=== PATIENT | female | born 1980 | race Caucasian/White ===

== ENCOUNTER 2016-09-08 07:02 | Day surgery (SDC) | payer BC ==
--- NOTE | 2016-09-02 10:36 | HP ---
DATE OF ADMISSION: 09/02/2016 HISTORY OF PRESENT ILLNESS: This is the first orthopedic outpatient admission for surgery for this 36-year- old female, who was evaluated through the orthopedic office and was found to have a displaced avulsion fracture of the distal phalanx of right small finger. The patient suffered an injury on 08/07/2016, was placed on a splint. The patient was currently evaluated through orthopedic office with a displaced fracture fragment and abnormality. The patient is now being scheduled for an open reduction and internal fixation of the fracture with pinning. Procedure has been outlined to her along the risks and complications involved with it. The patient has a history of an upper respiratory infection, which is being treated. She notes no fever, chills, or nighttime sweats at this time. ALLERGIES: No known drug allergies. PAST MEDICAL HISTORY: Has been a healthy 36-year-old female with the upper respiratory infection being treated. MEDICAL PROBLEMS: The patient denies any history of high blood pressure, diabetes, currently on medications of an inhaler and antibiotics. PAST SURGICAL HISTORY: Positive. She notes no anesthesia complications or problems. She has a negative bleeding history, negative blood clot history. SOCIAL HISTORY: She is a nonsmoker and alcohol is very rare. PHYSICAL EXAMINATION: GENERAL: Today, reveals a well-developed, well-nourished, 36-year-old female, in [id number] distress. HEAD, EYES, EARS, NOSE, AND THROAT: Normocephalic. NECK: Supple. CHEST: Clear. COR: Regular rate and rhythm. ABDOMEN: Soft. : Intact. EXTREMITIES: Examination of the right hand, small finger reveals positive swelling over the distal interphalangeal joint region. Positive mallet deformity noted. RADIOGRAPHIC STUDIES: The x-rays reveal a displaced fracture fragment, distal phalanx, right small finger avulsion type. PLAN: For the patient to undergo surgical open reduction and internal fixation with K- wire pinning. Procedure as outlined to the patient. She understands the risks and complications involved with it and has consented to the surgery. CANDY /[id number]
[~2016-09-08 07:02] MED LIST: Lactated Ringers 1,000 ML IV SCH; Lidocaine 1%/Sod Bicarbonate in NS 8.4% 1 ML Syringe IV PRN; Sodium Chloride 0.9% 10 ML Syringe FLUSH PRN
[2016-09-08] MEDS ORDERED: Lidocaine 1% 2 ML SDV ONE (07:08)
[2016-09-08] MEDS ORDERED: Ondansetron 4 MG/2 ML SDV ONE (07:08)
[2016-09-08] MEDS ORDERED: Propofol 200 MG/20 ML SDV ONE (07:08)
[2016-09-08] MEDS ORDERED: ceFAZolin 1 GM Vial ONE (07:09)
[2016-09-08] MEDS ORDERED: Midazolam 1 MG/ML 2 ML SDV ONE (07:09)
[2016-09-08] MEDS ORDERED: fentaNYL 250 MCG/5 ML SDV ONE (07:09)
--- NOTE | 2016-09-08 07:26 | PCM.PREANE ---
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 Respiratory: Reports: no symptoms Cardiovascular: Reports: no symptoms GI: Reports: no symptoms Other: Reports: none - PHYSICAL ASSESSMENT HR: 56 O2 Sat by Pulse Oximetry: 99 RR: 16 BP: 116/78 Temp: 97.4 F Height: 5 ft 5 in Weight: 66 kg NPO Status Date: 09/07/16 NPO Status Time: 21:00 ASA Class: 1 Mental Status: alert & oriented x3 Airway Class: Mallampati = 1 Dentition: Reports: normal dentition, broken tooth/teeth (front one) Thyro-Mental Finger Breadths: 3 Mouth Opening Finger Breadths: 3 ROM/Head Extension: full Respiratory Status: lungs clear to auscultation bilaterally Cardiovascular Status: regular rate & rhythm, normal S1, S2, no murmur, blood pressure WNL - ALLERGIES Allergies/Adverse Reactions: Allergies Allergy/AdvReac Type Severity Reaction Status Date / Time No Known Allergies Allergy Verified 09/07/16 13:01 - BLOOD Blood Available: No - ANESTHESIA PLAN Preop Beta Norbert: No Anesthesia Type Planned: general anesthesia - ACKNOWLEDGEMENTS Pt an appropriate candidate for the planned anesthesia: Yes Alternatives and risks of anesthesia discussed w pt/guardian: Yes Pt/Guardian understands and agree with anesthesia plan: Yes PreAnesthesia Questionnaire - Past Health History Medical/Surgical History: Denies Medical/Surgical History HEENT History: Reports: None Cardiovascular History: Reports: None Respiratory History: Reports: None Gastrointestinal History: Reports: None Genitourinary History: Reports: None 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 Musculoskeletal History: Reports: Fracture Neurological History: Reports: None Psychiatric History: Reports: None Endocrine/Metabolic History: Reports: None Hematologic History: Reports: None Immunologic History: Reports: None Oncologic (Cancer) History: Reports: None Dermatologic History: Reports: None - Infectious Disease History Infectious Disease History: Reports: None - Past Surgical History Head Surgeries/Procedures: Reports: None HEENT Surgical History: Reports: None Cardiovascular Surgical History: Reports: None Respiratory Surgical History: Reports: None GI Surgical History: Reports: None Female Surgical History: Reports: None, Tubal ligation Neurological Surgical History: Reports: None Musculoskeletal Surgical History: Reports: Other (see below) (acl knee) Oncologic Surgical History: Reports: None - SUBSTANCE USE Smoking Status *Q: Former Smoker (long time ago) Tobacco Use Within Last Twelve Months: No Second Hand Smoke Exposure: No Days Per Week of Alcohol Use: 2 Number of Drinks Per Day: 1 Total Drinks Per Week: 2 Recreational Drug Use History: No - HOME MEDS Home Medications: Home Meds . [No Known Home Meds] 09/07/16 [History] - CURRENT (IN HOUSE) MEDS Current Meds: Current Medications Lactated Ringer's (Ringers, Lactated) 1,000 mls @ 125 mls/hr IV ASDIRECTED ALIREZA Stop: 09/08/16 23:00 Lidocaine/Sodium Bicarbonate (Buffered Lidocaine 1% In Ns 8.4%) 0.25 ml IV ONETIME PRN PRN Reason: Prior to IV Start Stop: 09/08/16 18:00 Sodium Chloride (Saline Flush) 10 ml FLUSH ASDIRECTED PRN PRN Reason: Keep Vein Open Stop: 09/08/16 18:00 Discontinued Medications Cefazolin Sodium (Ancef) Confirm Administered Dose 2 gm .ROUTE .STK-MED ONE Stop: 09/08/16 07:10 Fentanyl (Sublimaze) Confirm Administered Dose 250 mcg .ROUTE .STK-MED ONE Stop: 09/08/16 07:10 Lidocaine HCl (Lidocaine 1%) Confirm Administered Dose 4 ml .ROUTE .STK-MED ONE Stop: 09/08/16 07:09 Midazolam HCl (Versed 1 Mg/Ml) Confirm Administered Dose 2 mg .ROUTE .STK-MED ONE Stop: 09/08/16 07:10 Ondansetron HCl (Zofran) Confirm Administered Dose 4 mg .ROUTE .STK-MED ONE Stop: 09/08/16 07:09 Propofol (Diprivan 20 Ml) Confirm Administered Dose 200 mg .ROUTE .STK-MED ONE Stop: 09/08/16 07:09
[2016-09-08] MEDS ORDERED: Iodine/Sodium Iodide 2% Tincture 30 ML Bottle ONE (07:34)
[2016-09-08] MEDS ORDERED: Ondansetron 4 MG/2 ML SDV IVPUSH PRN ×2 (07:37→08:03)
[2016-09-08] MEDS ORDERED: Ketorolac 30 MG/ML SDV IVPUSH PRN (07:37)
[2016-09-08] MEDS ORDERED: traMADol 50 MG Tab PO PRN (07:37)
[2016-09-08] MEDS ORDERED: fentaNYL 100 MCG/2 ML SDV IVPUSH PRN (08:03)
[2016-09-08] MEDS ORDERED: ePHEDrine 50 MG/ML SDV ONE (08:20)
[2016-09-08] MEDS ORDERED: Bupivacaine 0.5% 30 ML SDV ONE (08:36)
[2016-09-08] MEDS ORDERED: Lactated Ringers 1,000 ML ONE (09:01)
[2016-09-08] MEDS ORDERED: Ketorolac 30 MG/ML SDV ONE (09:02)
[2016-09-08] MEDS ORDERED: Meperidine PF 50 MG/ML Syringe IVPUSH PRN (09:15)
[2016-09-08] MEDS ORDERED: HYDROmorphone 0.5 MG/0.5 ML Syringe IVPUSH PRN (09:15)
--- NOTE | 2016-09-08 09:16 | PCM.POSTAN ---
POST ANESTHESIA ASSESSMENT - MENTAL STATUS Mental Status: alert, oriented - VITAL SIGNS Pulse Rate: 82 SaO2: 98 Resp Rate: 20 Blood Pressure: 111/59 Temperature: 97.8 F - RESPIRATORY Respiratory Status: respiratory rate WNL, airway patent, O2 saturation stable, supplemental oxygen - CARDIOVASCULAR CV Status: pulse rate WNL, blood pressure stable - GASTROINTESTINAL GI Status: no symptoms - PAIN Pain Score: 0 - POST OP HYDRATION Hydration Status: adequate & stable
--- NOTE | 2016-09-08 09:59 | CR ---
Right fifth finger: Two fluoroscopic spot views were obtained utilizing C-arm device of the right fifth finger. Comparison: Previous right finger exam of 08/28/16. Study shows longitudinal pin crossing the DIP joint. Additional pin is seen close to 90 degrees in orientation from the first.. Previous avulsion fracture is again noted within the posterior base of the distal phalanx. Fluoroscopy time given as 56.2 seconds. Impression: 1. Operative study showing fixation of the PIP joint of the right fifth finger. Stable avulsion fracture within the base of the distal phalanx. Diagnostic code #3 MTDD
[2016-09-08 10:04] VITALS: BP 101/77
--- NOTE | 2016-09-08 11:11 | PCM48HPAN ---
Post Anesthesia Note - EVALUATION WITHIN 48HRS OF ANESTHETIC Vital Signs in Normal Range: Yes Patient Participated in Evaluation: No (visited with nurse. patient discharged.) Respiratory Function Stable: Yes Airway Patent: Yes Cardiovascular Function Stable: Yes Hydration Status Stable: Yes Pain Control Satisfactory: Yes Nausea and Vomiting Control Satisfactory: Yes Mental Status Recovered: Yes
--- NOTE | 2016-09-09 12:01 | OR ---
DATE OF OPERATION: 09/08/2016 SURGEON: Teo Ariza MD PREOPERATIVE DIAGNOSIS: Displaced avulsion fracture distal phalanx right small finger. POSTOPERATIVE DIAGNOSIS: Displaced avulsion fracture distal phalanx right small finger. ANESTHESIA: General. OPERATION PERFORMED: Open reduction and internal fixation with K-wires avulsion fracture distal phalanx, extensor tendon right small finger. DESCRIPTION OF PROCEDURE: The patient was taken to the operating room in supine position. She was placed under general anesthesia. The right arm was prepped and draped in a standard fashion. Operation began with initially placement of a 1.25 K-wire at the tip of the distal phalanx by fluoroscopy, carried down to the level of the fracture site. Once that was in position, the operation proceeded with a small L incision being placed across the DIP joint of the right small finger. Penetrating through the skin and subcutaneous tissues, these were dissected off the extensor tendon mechanism. The fracture fragment was immediately identified which was loose. The bone surfaces were then scraped on the distal phalanx and the fracture fragment. Once the previous fibrous-type tissue was removed the operation proceeded with irrigation of the area and then a second K-wire was then directed in angle beginning right at the superior edge of the fracture site and angled towards the distal tip of the finger at approximately 45 degree angle. The K-wire was then placed through the phalanx and then a hook was created at the tip and that was cut and the fracture fragment was then reduced to the distal phalanx and then hooked K-wire was then pulled through the bone area securing the fracture fragment to the distal tip of the phalanx itself. Once that was in place the pin that was previously positioned was extended across the DIP joint into the middle phalanx securing the DIP. Fluoroscopy was used and evaluation of the fracture on AP and laterals found good reduction of the fracture fragment and secured fixation. The operation proceeded with irrigation of wound area. The skin was then closed with 5-0 Prolene. The pins were cut at the level of the skin. The operation then proceeded with standard applications of dressings and a splint. The patient tolerated the procedure well and she left the operating room in stable condition to her room for recovery. ESTIMATED BLOOD LOSS: MMODAL /[id number]
== END 2016-09-08 10:20 | disposition home or self-care (01) ==
LOC: JD.SDS 07:02 → MERGE 08:00 → JD.SDS 10:20
PROVIDERS: ATTEND Specialist
DX: S62.636A Displaced fracture of distal phalanx of right little finger, initial encounter for closed fracture (principal)
CPT/HCPCS: 01830; 76000; 76000-26; A9270-GY; C1769; J0690; J1170; J1885; J2250; J2405; J2704; J3010; J7120

== ENCOUNTER 2016-10-20 06:58 | Day surgery (SDC) | payer BC ==
--- NOTE | 2016-10-15 06:49 | HP ---
DATE OF ADMISSION: 10/20/2016 HISTORY OF PRESENT ILLNESS: This is a second orthopedic outpatient admission for surgery. This patient is being admitted for removal of K-wire fixation pins, right small finger that are buried deep in the soft tissue area. The patient had undergone a previous surgery on 09/08/2016, which was a fracture reduction and K-wire fixation. She currently is in the postoperative phase. Her wounds are well healed. She is now 6 weeks post surgery with x-ray showing positive healing of the fracture fragment. The procedures were outlined to her. She understands the procedure and has consented to it. PAST MEDICAL HISTORY: Allergies: No known drug allergies. Medical: She has been a healthy 36-year-old female, currently on no medications. PAST SURGICAL HISTORY: Positive. She had previous surgery on 09/08/2016, it was open reduction and internal fixation of right small finger fracture. She has a negative bleeding history, negative blood clot history. SOCIAL HISTORY: She is a nonsmoker, and drinking is only occasional and rarely. PHYSICAL EXAMINATION: GENERAL: Today, reveals a well-developed, well-nourished, 36-year-old female, in minimal distress. HEAD, EYES, EARS, NOSE, and THROAT: Normocephalic. NECK: Supple. CHEST: Clear. COR: Regular rate. ABDOMEN: Soft. : Intact. EXTREMITIES: Examination of the right hand reveals positive surgical incision over the distal interphalangeal joint of the right small finger well-healed on dorsal aspect, severe sensitivity to pressure around the pin site fixation. No signs of infection noted. RADIOGRAPHIC STUDIES: X-rays were performed today showed the [address], deeply buried in the soft tissue. The fracture fragment appears to be healed to the bone structure itself with no fracture line noted. ASSESSMENT: Distal phalanx fracture right of the small finger with K-wire fixation. PLAN: Plan is for the patient to undergo surgical removal with a local anesthetic. MMODAL /[id number]
[2016-10-20] MEDS ORDERED: fentaNYL 100 MCG/2 ML SDV ONE ×2 (06:59→07:55)
[2016-10-20] MEDS ORDERED: Propofol 200 MG/20 ML SDV ONE (06:59)
[2016-10-20] MEDS ORDERED: Midazolam 1 MG/ML 2 ML SDV ONE ×2 (07:02→08:03)
[2016-10-20] MEDS ORDERED: ceFAZolin 1 GM Vial ONE ×2 (07:11→07:12)
--- NOTE | 2016-10-20 07:22 | PCM.PREANE ---
Preanesthetic Assessment - Anesthesia/Transfusion/Family Hx Anesthesia History: Prior Anesthesia Without Reaction Family History of Anesthesia Reaction: No - Review of Systems General: No Symptoms Pulmonary: No Symptoms Cardiovascular: No Symptoms Gastrointestinal: No symptoms Neurological: No Symptoms Other: Reports: None - Physical Assessment NPO Status Time: 21:00 Pulse: 66 O2 Sat by Pulse Oximetry: 98 Respiratory Rate: 17 Blood Pressure: 116/77 Temperature: 97.2 C Height: 1.65 m Weight: 66 kg ASA Class: 1 Mental Status: Alert & Oriented x3 Airway Class: Mallampati = 1 Dentition: Reports: Normal Dentition, Broken Tooth/Teeth ((L) front) Thyro-Mental Finger Breadths: 3 Mouth Opening Finger Breadths: 3 ROM/Head Extension: Full Lungs: Clear to auscultation, Normal respiratory effort Cardiovascular: Regular Rate, Regular Rhythm - Allergies Allergies/Adverse Reactions: Allergies Allergy/AdvReac Type Severity Reaction Status Date / Time No Known Allergies Allergy Verified 10/19/16 14:32 - Anesthesia Plan Pre-Op Medication Ordered: None, Other - Acknowledgements Anesthesia Type Planned: MAC Pt an Appropriate Candidate for the Planned Anesthesia: Yes Alternatives and Risks of Anesthesia Discussed w Pt/Guardian: Yes Pt/Guardian Understands and Agrees with Anesthesia Plan: Yes PreAnesthesia Questionnaire - Past Health History Medical/Surgical History: Denies Medical/Surgical History HEENT History: Reports: None Cardiovascular History: Reports: None Respiratory History: Reports: None Gastrointestinal History: Reports: None Genitourinary History: Reports: None 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, Other (see below) (hx of tubal ligation so will forego test) Musculoskeletal History: Reports: None, Fracture (hx (R) small finger fx) Neurological History: Reports: None Psychiatric History: Reports: None Endocrine/Metabolic History: Reports: None Hematologic History: Reports: None Immunologic History: Reports: None Oncologic (Cancer) History: Reports: None Dermatologic History: Reports: None - Infectious Disease History Infectious Disease History: Reports: None - Past Surgical History Head Surgeries/Procedures: Reports: None HEENT Surgical History: Reports: None Cardiovascular Surgical History: Reports: None Respiratory Surgical History: Reports: None GI Surgical History: Reports: None Female Surgical History: Reports: None, Tubal ligation Endocrine Surgical History: Reports: None ((L) knee, (R) small finger fx-no anesthetic complications with any surgeries) Neurological Surgical History: Reports: None Musculoskeletal Surgical History: Reports: Other (see below) Oncologic Surgical History: Reports: None Dermatological Surgical History: Reports: None - Past Imaging History Past Imaging History: Reports: None - SUBSTANCE USE Smoking Status *Q: Former Smoker Tobacco Use Within Last Twelve Months: No Second Hand Smoke Exposure: No Days Per Week of Alcohol Use: 2 Number of Drinks Per Day: 1 Total Drinks Per Week: 2 Recreational Drug Use History: No - HOME MEDS Home Medications: Home Meds . [No Known Home Meds] 09/07/16 [History] - CURRENT (IN HOUSE) MEDS Current Meds: Current Medications Lactated Ringer's (Ringers, Lactated) 1,000 mls @ 125 mls/hr IV ASDIRECTED ALIREZA Stop: 10/20/16 23:00 Lidocaine/Sodium Bicarbonate (Buffered Lidocaine 1% In Ns 8.4%) 0.25 ml IV ONETIME PRN PRN Reason: Prior to IV Start Stop: 10/20/16 18:00 Sodium Chloride (Saline Flush) 10 ml FLUSH ASDIRECTED PRN PRN Reason: Keep Vein Open Stop: 10/20/16 18:00 Discontinued Medications Cefazolin Sodium (Ancef) Confirm Administered Dose 1 gm .ROUTE .STK-MED ONE Stop: 10/20/16 07:12 Cefazolin Sodium (Ancef) Confirm Administered Dose 1 gm .ROUTE .STK-MED ONE Stop: 10/20/16 07:13 Fentanyl (Sublimaze) Confirm Administered Dose 100 mcg .ROUTE .STK-MED ONE Stop: 10/20/16 07:00 Midazolam HCl (Versed 1 Mg/Ml) Confirm Administered Dose 2 mg .ROUTE .STK-MED ONE Stop: 10/20/16 07:03 Propofol (Diprivan 20 Ml) Confirm Administered Dose 200 mg .ROUTE .STK-MED ONE Stop: 10/20/16 07:00 Preanesthetic Assessment - ANESTHESIA/TRANSFUSION/FAMILY HX Anesthesia/Transfusion History: No Prior Transfusion(s), Prior Anesthesia (no prob) Family History of Anesthesia Reaction: No - PHYSICAL ASSESSMENT Height: 1.65 m Weight: 66 kg - ALLERGIES Allergies/Adverse Reactions: Allergies Allergy/AdvReac Type Severity Reaction Status Date / Time No Known Allergies Allergy Verified 10/19/16 14:32
[2016-10-20] MEDS ORDERED: Lidocaine 1% 30 ML SDV ONE (07:25)
[2016-10-20] MEDS ORDERED: Acetaminophen/HYDROcodone 325-5 MG Tab PO PRN (07:40)
[2016-10-20] MEDS ORDERED: Ketorolac 15 MG/ML SDV IVPUSH PRN (07:40)
[2016-10-20] MEDS ORDERED: Ondansetron 4 MG/2 ML SDV IVPUSH PRN (07:40)
[2016-10-20] MEDS ORDERED: Ketorolac 30 MG/ML SDV ONE (08:20)
[2016-10-20] MEDS ORDERED: Ondansetron 4 MG/2 ML SDV ONE (08:20)
--- NOTE | 2016-10-20 08:40 | PCM48HPAN ---
Post Anesthesia Note - EVALUATION WITHIN 48HRS OF ANESTHETIC Vital Signs in Normal Range: Yes Patient Participated in Evaluation: Yes Respiratory Function Stable: Yes Airway Patent: Yes Cardiovascular Function Stable: Yes Pain Control Satisfactory: Yes Nausea and Vomiting Control Satisfactory: Yes Mental Status Recovered: Yes
[2016-10-20 08:45] VITALS: BP 104/87
--- NOTE | 2016-10-20 08:56 | CR ---
Right fifth finger: Multiple fluoroscopic spot views were obtained of the right fifth finger utilizing C-arm device. Study shows removal of fixation pins crossing the DIP joint. Small avulsion fracture remains stable. Mild soft tissue swelling is noted. Impression: 1. Removal of fixation pins crossing the DIP joint of the right fifth finger. 2. Stable avulsion fracture. Diagnostic code #2
--- NOTE | 2016-10-21 07:45 | OR ---
DATE OF OPERATION: 10/20/2016 SURGEON: Teo Ariza MD PREOPERATIVE DIAGNOSIS: Status post distal phalanx fracture, right small finger with a 2 K-wire fixation. POSTOPERATIVE DIAGNOSIS: Status post distal phalanx fracture, right small finger with a 2 K-wire fixation. ANESTHESIA: Sedation with 1% digital block local lidocaine. OPERATION PERFORMED: Removal of hardware, right small finger and deep pin fixation. DESCRIPTION OF PROCEDURE: The patient was taken to the operating room in supine position and was placed under a light sedation anesthesia. The right arm was prepped and draped by standard technique and the digital block was in place using 1% lidocaine at the metacarpophalangeal joint area. Once adequate anesthesia was obtained, the operation then proceeded with identification of the K-wire fixation. The deep K- wires had to be localized with a 25-gauge needle and once localized, a small stab incision was used with the 11 blade beginning with the dorsal K-wire. The outline of the K-wire was then made with the 11 blade and then was removed with a mosquito hemostat. Once that was out, the operation then proceeded with closure of the skin with a 5-0 Prolene. The distal K-wire was then identified while using the needle probe again a small stab incision with 11 blade was then used to expose the tip of the pin, which again was deeply buried in the soft tissue. The mosquito hemostat was then used to loosen the pin until it was able to be removed with a needle-nose pliers. Once the pin was removed, the x-rays were then taken. The AP and lateral showed the fracture fragment has shifted somewhat, but did show bone attachment. The operation then proceeded with irrigation of wound areas. A soft dressing was applied with splint. The patient tolerated this procedure well. She left the operating room in stable condition to her room for recovery. ESTIMATED BLOOD LOSS: MMODAL /[id number]
== END 2016-10-20 09:07 | disposition home or self-care (01) ==
LOC: JD.SDS 06:58
PROVIDERS: ATTEND Specialist
DX: Z47.2 Encounter for removal of internal fixation device (principal)
CPT/HCPCS: 20694; 76000; J0690; J1885; J2250; J2405; J3010; J7120; 01830; J2704

== ENCOUNTER 2021-01-14 08:22 | Day surgery (SDC) | payer BC ==
[~2021-01-14 08:22] MED LIST changes: +Lidocaine 1%/Sod Bicarbonate in NS 8.4% 1 ML Syringe IDERM PRN; -Lidocaine 1%/Sod Bicarbonate in NS 8.4% 1 ML Syringe IV PRN
[2021-01-14] MEDS ORDERED: Sodium Chloride 0.9% 50 ML SDV ONE (08:44)
[2021-01-14] MEDS ORDERED: Lidocaine 1% with EPINEPHrine 1:100,000 10 ML MDV ONE (08:44)
[2021-01-14] MEDS ORDERED: Bupivacaine 0.5% 30 ML SDV ONE (08:44)
[2021-01-14] MEDS ORDERED: Ondansetron 4 MG/2 ML SDV ONE (09:02)
[2021-01-14] MEDS ORDERED: Rocuronium 50 MG/5 ML Vial ONE (09:02)
[2021-01-14] MEDS ORDERED: Midazolam 1 MG/ML 2 ML SDV ONE (09:02)
[2021-01-14] MEDS ORDERED: Lidocaine 1% 4 ML ONE (09:03)
[2021-01-14] MEDS ORDERED: fentaNYL 250 MCG/5 ML SDV ONE (09:03)
[2021-01-14] MEDS ORDERED: Ketorolac 30 MG/ML SDV ONE (09:03)
[2021-01-14] MEDS ORDERED: Propofol 200 MG/20 ML SDV ONE (09:03)
--- NOTE | 2021-01-14 09:03 | PCM.PREANE ---
Preanesthetic Assessment - Procedure Proposed Procedure: total vaginal hysterectomy - Anesthesia/Transfusion/Family Hx Anesthesia History: Prior Anesthesia Without Reaction Family History of Anesthesia Reaction: No Transfusion History: No Prior Transfusion(s) - Review of Systems General: No Symptoms Pulmonary: No Symptoms Cardiovascular: No Symptoms Gastrointestinal: No Symptoms Neurological: No Symptoms Other: Reports: None - Physical Assessment NPO Status Date: 01/13/21 NPO Status Time: 20:30 Vital Signs: 121/88 67 100% 14 98.9 Height: 5 ft 5 in Weight: 74.2 kg ASA Class: 1 Mental Status: Alert & Oriented x3 Airway Class: Mallampati = 1 Dentition: Reports: Normal Dentition Thyro-Mental Finger Breadths: 3 Mouth Opening Finger Breadths: 3 ROM/Head Extension: Full Lungs: Clear to Auscultation, Normal Respiratory Effort, Rhonchi Cardiovascular: Regular Rate - Lab Values: Laboratory Last Values Urine HCG, Qual Negative (NEGATIVE) 01/14/21 08:32 - Allergies Allergies/Adverse Reactions: Allergies Allergy/AdvReac Type Severity Reaction Status Date / Time No Known Allergies Allergy Verified 10/20/16 07:39 - Blood Blood Available: No - Acknowledgements Anesthesia Type Planned: General Anesthesia Pt an Appropriate Candidate for the Planned Anesthesia: Yes Alternatives and Risks of Anesthesia Discussed w Pt/Guardian: Yes Pt/Guardian Understands and Agrees with Anesthesia Plan: Yes PreAnesthesia Questionnaire - Past Health History Medical/Surgical History: Denies Medical/Surgical History HEENT History: Reports: None Cardiovascular History: Reports: None Respiratory History: Reports: None Gastrointestinal History: Reports: None Genitourinary History: Reports: None 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, Other (See Below) Musculoskeletal History: Reports: None, Fracture (hx (R) small finger fx) Neurological History: Reports: None Psychiatric History: Reports: None Endocrine/Metabolic History: Reports: None Hematologic History: Reports: None Immunologic History: Reports: None Oncologic (Cancer) History: Reports: None Dermatologic History: Reports: None - Infectious Disease History Infectious Disease History: Reports: None - Past Surgical History Female Surgical History: Reports: None, Tubal Ligation Musculoskeletal Surgical History: Reports: Arthroscopic Knee, Other (See Below) - Past Imaging History Past Imaging History: Reports: None - SUBSTANCE USE Tobacco Use Status *Q: Former Tobacco User Tobacco Use Within Last Twelve Months: Cigarettes Second Hand Smoke Exposure: No Days Per Week of Alcohol Use: 3 Number of Drinks Per Day: 5 Total Drinks Per Week: 15 Recreational Drug Use History: No - HOME MEDS Home Medications: Home Meds . [No Known Home Meds] 09/07/16 [History] - CURRENT (IN HOUSE) MEDS Current Meds: Current Medications Lactated Ringer's (Ringers, Lactated) 1,000 mls @ 125 mls/hr IV ASDIRECTED ALIREZA Stop: 01/14/21 23:00 Lidocaine/Sodium Bicarbonate (Lidocaine 1%/Sod Bicarbonate In Ns 8.4% 1 Ml Syringe) 0.25 ml IDERM ONETIME PRN PRN Reason: Prior to IV Start Stop: 01/14/21 18:00 Sodium Chloride (Sodium Chloride 0.9% 10 Ml Syringe) 10 ml FLUSH ASDIRECTED PRN PRN Reason: Keep Vein Open Stop: 01/14/21 18:00 Discontinued Medications Bupivacaine HCl (Bupivacaine 0.5% 30 Ml Sdv) Confirm Administered Dose 30 ml .ROUTE .STK-MED ONE Stop: 01/14/21 08:45 Lidocaine/Epinephrine (Lidocaine 1% With Epinephrine 1:100,000 10 Ml Mdv) Confirm Administered Dose 10 ml .ROUTE .STK-MED ONE Stop: 01/14/21 08:45 Sodium Chloride (Sodium Chloride 0.9% 50 Ml Sdv) Confirm Administered Dose 50 ml .ROUTE .STK-MED ONE Stop: 01/14/21 08:45
[2021-01-14] MEDS ORDERED: ceFAZolin 1 GM Vial ONE (09:04)
[2021-01-14] MEDS ORDERED: Dexamethasone 4 MG/ML 5 ML MDV ONE (11:01)
[2021-01-14] MEDS ORDERED: HYDROmorphone 0.5 MG/0.5 ML Syringe ONE ×2 (11:05)
[2021-01-14] MEDS ORDERED: Lactated Ringers 1,000 ML ONE (11:10)
[2021-01-14] MEDS ORDERED: ePHEDrine 50 MG/ML SDV ONE (11:14)
[2021-01-14] MEDS ORDERED: Bacitracin Oint 15 GM Tube ONE (11:38)
[2021-01-14] MEDS ORDERED: Ondansetron 4 MG/2 ML SDV IVPUSH PRN (11:40)
[2021-01-14] MEDS ORDERED: Acetaminophen/oxyCODONE 325-5 MG Tab PO PRN (11:40)
--- NOTE | 2021-01-14 11:46 | PCM.OPNOTE ---
- General Post-Op/Procedure Note Date of Surgery/Procedure: 01/14/21 Operative Procedure(s): 1. Total vaginal hysterectomy with bilateral salpingectomy. 2. Excision of vulvar skin tag Findings: Uterus, tubes and ovaries appeared normal. The fallopian tubes appeared to be status post tubal cauterization. Skin tag appeared benign, was on the right buttocks, approximately 4 mm in diameter and raised 3 mm. Pre Op Diagnosis: 1. Abnormal uterine bleeding. 2. Dysmenorrhea. 3. Right vulvar/buttock skin tag Post-Op Diagnosis: Same Anesthesia Technique: General ET Tube Other Anesthesia Type: Lidocaine quarter percent with [id number] cc local Primary Surgeon: River Hinojosa Secondary Surgeon: Bandar Riggins Anesthesia Provider: Wiley Guido [employer] Data Analyst Was Necessary: Retraction, assistance, patient safety, quality of care. Pathology: 1. Uterus with bilateral fallopian tubes and one specimen container 2. Skin tagright buttocks Fluid Replacement, Intraop: 1,600 EBL in mLs: 10 Complications: None Condition: Good Free Text/Narrative:: Surgery duration: 29 minutes Procedure: The patient was placed in supine position on the operating table. General endotracheal anesthesia was accomplished. After positioning, and adequate prep and drape, the procedure was then performed. Sterile speculum was placed in the vagina and cervix was visualized. Cervix was injected with lidocaine quarter percent with epinephrine-20 mL used. A full circumference incision was made in the cervical epithelium. The bladder was pushed well back off cervix. Posterior cul-de-sac was then entered sharply without problems. Left uterosacral was crossclamped with a Enseal vessel closure system. The left uterosacral and then the right uterosacral ligament pedicles were developed using the Enseal system. The anterior cul-de-sac was then entered without problems and the uterine vasculature, cardinal ligament and broad ligament then developed using Enseal vessel closure system. The uterus was inverted at this time and upper broad ligament fallopian tube pedicles were crossclamped with Geraldine clamps. Specimen was totally removed. Both these pedicles were then secured with the Enseal vessel closure system. Left and right fallopian tube was normal in appearance other than evidence of bilateral tubal cauterization done previously. Using Enseal vessel closure system each of the tubes was then removed and sent with the specimen. The patient was found to be hemostatically intact at this time. Vaginal cuff was sutured for hemostatic reasons with a running locked suture of 0 Monocryl from the 2 o'clock position to the 10 o'clock position posteriorly. Vaginal cuff was then closed from right to left side with a running locked suture of 0 Monocryl. A 4 mm in diameter, 3 mm raised skin tag on right buttocks was excised. Base of this area was cauterized for hemostasis. Antibiotic gel was applied. Patient was returned to supine position and awakened from general endotracheal anesthesia. She tolerated the procedure and left the operating room in satisfactory condition.
[2021-01-14] MEDS ORDERED: HYDROmorphone 0.5 MG/0.5 ML Syringe IVPUSH PRN (12:03)
[2021-01-14] MEDS ORDERED: fentaNYL 100 MCG/2 ML SDV IVPUSH PRN (12:03)
--- NOTE | 2021-01-14 12:04 | PCM.POSTAN ---
POST ANESTHESIA ASSESSMENT - MENTAL STATUS Mental Status: Alert, Oriented - VITAL SIGNS Vital Signs: Last Vital Signs Temp 37.2 C 01/14/21 08:45 Pulse 67 01/14/21 08:45 Resp 14 01/14/21 08:45 BP 121/88 01/14/21 08:45 Pulse Ox 100 01/14/21 08:45 - RESPIRATORY Respiratory Status: Respiratory Rate WNL, Airway Patent, O2 Saturation Stable - CARDIOVASCULAR CV Status: Pulse Rate WNL, Blood Pressure Stable - GASTROINTESTINAL GI Status: No Symptoms - PAIN Pain Score: 0 - POST OP HYDRATION Hydration Status: Adequate & Stable - OBSERVATIONS Free Text/Narrative:: no anesthesia complications noted
--- NOTE | 2021-01-14 13:21 | PCM48HPAN ---
Post Anesthesia Note - EVALUATION WITHIN 48HRS OF ANESTHETIC Vital Signs in Normal Range: Yes Patient Participated in Evaluation: Yes Respiratory Function Stable: Yes Airway Patent: Yes Cardiovascular Function Stable: Yes Hydration Status Stable: Yes Pain Control Satisfactory: Yes Nausea and Vomiting Control Satisfactory: Yes Mental Status Recovered: Yes Vital Signs: Last Vital Signs Temp 36.7 C 01/14/21 13:00 Pulse 52 L 01/14/21 13:00 Resp 12 01/14/21 13:00 BP 111/73 01/14/21 13:00 Pulse Ox 98 01/14/21 13:00 - COMMENTS/OBSERVATIONS Free Text/Narrative:: no anesthesia complications noted
[2021-01-14 13:40] VITALS: BP 121/75; PULSE 49
[2021-01-14] MEDS ORDERED: Ketorolac 30 MG/ML SDV IVPUSH SCH (15:30)
[2021-01-14] MEDS ORDERED: Ibuprofen 600 MG Tab PO PRN (21:30)
== END 2021-01-14 14:05 | disposition home or self-care (01) ==
LOC: JD.SDS 08:22
PROVIDERS: ATTEND Obstetrics & Gynecology
DX: N80.0 Endometriosis of uterus (principal); N90.89 Other specified noninflammatory disorders of vulva and perineum; N88.8 Other specified noninflammatory disorders of cervix uteri; N83.8 Other noninflammatory disorders of ovary, fallopian tube and broad ligament; D28.0 Benign neoplasm of vulva; Z91.030 Bee allergy status; Z98.890 Other specified postprocedural states; Z87.891 Personal history of nicotine dependence; Z01.812 Encounter for preprocedural laboratory examination; Z20.822 Contact with and (suspected) exposure to COVID-19
CPT/HCPCS: 11420; 36415; 58262; 81025; 82565; 85025; 86850; 86900; 86901; 87635; A9270; J0690; J1100; J1170; J1885; J2250; J2405; J2704; J3010; J7120; 00944; J3490; U0002

== ENCOUNTER 2021-01-15 14:17 | Emergency (ER) | payer BC ==
[2021-01-15 14:30] VITALS: BP 130/97; PULSE 66
[2021-01-15] MEDS ORDERED: Metoclopramide 10 MG/2 ML SDV IVPUSH ONE (14:45)
[2021-01-15] MEDS ORDERED: HYDROmorphone 1 MG/ML Syringe IVPUSH ONE (14:45)
[2021-01-15] MEDS ORDERED: Dextrose 5%-Lactated Ringers 1,000 ML IV SCH (14:45)
--- NOTE | 2021-01-15 14:49 | EDM.PDOC ---
ED HPI GENERAL MEDICAL PROBLEM - General Chief Complaint: Abdominal Pain Stated Complaint: HAD SURGERY YESTERDAY IN LOT OF PAIN Time Seen by Provider: 01/15/21 14:44 Source of Information: Reports: Patient, Family (spouse) History Limitations: Reports: No Limitations - History of Present Illness INITIAL COMMENTS - FREE TEXT/NARRATIVE: 40-year-old female presents to the ED for evaluation of diffuse lower abdominal pain after undergoing a transvaginal hysterectomy yesterday by Dr. Hinojosa. Patient does not believe that she is passing any flatus. This is in spite of taking a laxative as well as a stool softener today. She tried to take the oral pain medications but had nothing but but nausea and vomiting from them. She has had very little to eat or drink since yesterday. She is making urine and does not have any relief of pain with voiding or worsening of pain with voiding. She states she is passing some blood per vagina but no worse than she was postoperatively. Denies fever or chills. Onset: Other (Postop lower abdominal pain since yesterday) Onset Date: 01/14/21 Onset Time: 10:00 Duration: Hour(s):, Constant Location: Reports: Abdomen (Diffuse lower abdominal pain which is constant radiates slightly into her back.) Quality: Reports: Ache, Sharp (Pain is occasional sharp and stabbing.), Stabbing Severity: Moderate (8 out of 10) Improves with: Reports: Rest Worsens with: Reports: Other (Worse with movement or deep breathing or coughing) Context: Reports: Other (Postop transvaginal hysterectomy yesterday with Dr. Hinojosa.). Denies: Activity, Exercise, Lifting, Sick Contact, Trauma Associated Symptoms: Reports: Loss of Appetite, Nausea/Vomiting. Denies: Confusion, Chest Pain, Cough, cough w sputum, Diaphoresis, Fever/Chills, Headaches, Malaise, Rash, Seizure, Shortness of Breath (After taking pain medications), Syncope, Weakness Treatments NURSE OBGYN: Reports: Other (see below) (None.) Lower Abdomen Pain Score (Numeric/FACES): 10 - Related Data Allergies Allergy/AdvReac Type Severity Reaction Status Date / Time No Known Allergies Allergy Verified 01/15/21 14:29 Home Meds: Home Meds Acetaminophen/oxyCODONE [Percocet 325-5 MG] 2 tab PO Q4H PRN tablet 07/06/21 [Rx] Ondansetron [Zofran] 4 mg BUCCAL Q6H PRN #10 tab 01/15/21 [Rx] polyethylene glycoL 3350 [MiraLAX] 17 gm PO DAILY #1 container 01/15/21 [Rx] Past Medical History - Past Health History Medical/Surgical History: Denies Medical/Surgical History HEENT History: Reports: None Cardiovascular History: Reports: None Respiratory History: Reports: None Gastrointestinal History: Reports: None Genitourinary History: Reports: None [employer]PERATOR History: Reports: Other (See Below) Other [employer] 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 Musculoskeletal History: Reports: Fracture Neurological History: Reports: None Psychiatric History: Reports: None Endocrine/Metabolic History: Reports: None Hematologic History: Reports: None Immunologic History: Reports: None Oncologic (Cancer) History: Reports: None Dermatologic History: Reports: None - Infectious Disease History Infectious Disease History: Reports: None - Past Surgical History Female Surgical History: Reports: Breast Implant, Hysterectomy, Tubal Ligation Endocrine Surgical History: Reports: None Musculoskeletal Surgical History: Reports: Arthroscopic Knee Other Musculoskeletal Surgeries/Procedures:: Pinky Surgery Dermatological Surgical History: Reports: Other (See Below) - Past Imaging History Past Imaging History: Reports: None Social & Family History - Tobacco Use Tobacco Use Status *Q: Never Tobacco User - Caffeine Use Caffeine Use: Reports: Coffee - Recreational Drug Use Recreational Drug Use: No - Living Situation & Occupation Living situation: Reports: Single Occupation: Employed ED ROS GENERAL - Review of Systems Review Of Systems: See Below Constitutional: Reports: Malaise, Decreased Appetite. Denies: Fever, Chills, Weakness, Fatigue, Weight Loss HEENT: Reports: No Symptoms Respiratory: Reports: No Symptoms Cardiovascular: Reports: No Symptoms Endocrine: Reports: No Symptoms GI/Abdominal: Reports: Abdominal Pain (See history of present illness.), Decreased Appetite : Reports: Other (She feels she is voiding normally. No pain with voiding) Musculoskeletal: Reports: No Symptoms Skin: Reports: No Symptoms Neurological: Reports: No Symptoms Psychiatric: Reports: No Symptoms Hematologic/Lymphatic: Reports: No Symptoms Immunologic: Reports: No Symptoms ED EXAM, GI/ABD - Physical Exam Exam: See Below Exam Limited By: No Limitations General Appearance: Alert, WD/WN, Moderate Distress, Other (Temperature is 36.9 degrees with a heart rate of 66. Respiratory rate is 16 with O2 sats of 100% room air) Eyes: Bilateral: Normal Appearance (No scleral icterus or blepharal pallor.) Throat/Mouth: Other (Tongue is mildly dry and coated.) Neck: No: Carotid Bruit, Lymphadenopathy (L), Lymphadenopathy (R), Thyromegaly Respiratory/Chest: No Respiratory Distress, Lungs Clear, Normal Breath Sounds, No Accessory Muscle Use Cardiovascular: Normal Peripheral Pulses, Regular Rate, Rhythm, No Edema, No Gallop, No Murmur, No Rub GI/Abdominal Exam: Guarding (Mild guarding suprapubically and right lower quadrant), Tender (Underlies tenderness mostly suprapubically with mild guarding right lower quadrant and right mid abdomen laterally.), Abnormal Bowel Sounds (Bowel sounds are present but they are few and far between.). No: Rigid, Rebound Extremities: Normal Inspection, Normal Range of Motion, Non-Tender, No Pedal Edema Neurological: Alert, Oriented, CN II-XII Intact, Normal Cognition. No: Normal Gait (Walking very slowly and slightly hunched over.) Psychiatric: Normal Mood Skin Exam: Warm, Dry, Intact, Normal Color Course - Vital Signs Last Recorded V/S: Last Vital Signs Temp 36.9 C 01/15/21 14:27 Pulse 66 01/15/21 14:27 Resp 16 01/15/21 14:27 BP 130/97 H 01/15/21 14:27 Pulse Ox 100 01/15/21 14:27 - Orders/Labs/Meds Labs: Laboratory Tests 01/15/21 01/15/21 Range/Units 14:45 14:45 WBC 8.57 (3.98-10.04) K/mm3 RBC 3.72 L (3.98-5.22) M/mm3 Hgb 12.3 D (11.2-15.7) gm/dl Hct 36.8 (34.1-44.9) % MCV 98.9 H (79.4-94.8) fl MCH 33.1 H (25.6-32.2) pg MCHC 33.4 (32.2-35.5) g/dl RDW Std Deviation 43.8 (36.4-46.3) fL Plt Count 269 (182-369) K/mm3 MPV 10.5 (9.4-12.3) fl Neut % (Auto) 74.7 H (34.0-71.1) % Lymph % (Auto) 17.7 L (19.3-51.7) % [place] % (Auto) 7.2 (4.7-12.5) % Eos % (Auto) 0.1 L (0.7-5.8) Baso % (Auto) 0.1 (0.1-1.2) % Neut # (Auto) 6.39 H (1.56-6.13) K/mm3 Lymph # (Auto) 1.52 (1.18-3.74) K/mm3 [place] # (Auto) 0.62 H (0.24-0.36) K/mm3 Eos # (Auto) 0.01 L (0.04-0.36) K/mm3 Baso # (Auto) 0.01 (0.01-0.08) K/mm3 Sodium 141 (136-145) mEq/L Potassium 3.9 (3.5-5.1) mEq/L Chloride 105 (98-107) mEq/L Carbon Dioxide 23 (21-32) mEq/L Anion Gap 16.9 H (5-15) BUN 6 L (7-18) mg/dL Creatinine 0.9 (0.55-1.02) mg/dL Est Cr Clr Drug Dosing 75.52 mL/min Estimated GFR (MDRD) > 60 (>60) mL/min BUN/Creatinine Ratio 6.7 L (14-18) Glucose 111 H (70-99) mg/dL Calcium 8.2 L (8.5-10.1) mg/dL Total Bilirubin 0.5 (0.2-1.0) mg/dL AST 14 L (15-37) U/L ALT 17 (14-59) U/L Alkaline Phosphatase 30 L (46-116) U/L Total Protein 6.2 L (6.4-8.2) g/dl Albumin 3.4 (3.4-5.0) g/dl Globulin 2.8 gm/dL Albumin/Globulin Ratio 1.2 (1-2) Meds: Medications Discontinued Medications Generic Name Dose Route Start Last Admin Trade Name Freq PRN Reason Stop Dose Admin Hydromorphone HCl 1 mg 01/15/21 14:45 01/15/21 14:57 Hydromorphone 1 Mg/Ml Syringe IVPUSH 01/15/21 14:46 1 mg ONETIME ONE Administration Dextrose/Lactated Ringer's 1,000 mls @ 999 mls/hr 01/15/21 14:45 01/15/21 14:58 Dextrose 5%-Lactated Ringers IV 999 mls/hr ASDIRECTED ALIREZA Administration Metoclopramide HCl 7.5 mg 01/15/21 14:45 01/15/21 14:55 Metoclopramide 10 Mg/2 Ml Sdv IVPUSH 01/15/21 14:46 7.5 mg ONETIME ONE Administration - Radiology Interpretation Free Text/Narrative:: 40-year-old female presents to the ED for evaluation of diffuse lower abdominal pain after having a transvaginal hysterectomy carried out by Dr. Hinojosa yesterday. She has not been able to take the oral Percocet tablets prescribed for pain relief due to nausea and vomiting. She is does not believe she is passing any flatus per rectum. She has taken a stool softener and a laxative. She is still passing some blood per vagina with some clots but no worse than she was postoperatively. She is voiding normally. On examination she has bowel sounds that are few and far between and she is not distended. She is very tender to palpation suprapubically and right lower quadrant and right mid lateral abdomen with guarding but no rebound tenderness. Plan a KUB will be done. IV will be D5 Ringer's lactate at open. I will give her Dilaudid 1 mg IV with Reglan 7.5 mg IV for for pain relief. CBC and CMP will be obtained. - Re-Assessments/Exams Free Text/Narrative Re-Assessment/Exam: 01/15/21 15:53 KUB reveals some stool in the hepatic flexure and descending colon and rectal vault. Bowel gas pattern is otherwise normal with no sign of bowel obstruction or ileus pattern. On discussing the x-ray with the patient she indicates that her pain is much improved. She has not yet passed any flatus. I am awaiting lab reports. 01/15/21 17:17 White count is 8.57 with 74.7% neutrophils on the auto diff erential. Hemoglobin is 12.3 with a hematocrit of 36.8. MCV is slightly elevated at 98.9. Platelet count 269,000. Sodium 141 with potassium of 3.9. Chloride 105 with a bicarb of 23. Anion gap is 16.9. BUN of 6 with a creatinine of 0.9 and a GFR greater than 60. Glucose 111 with a calcium of 8.2 slightly low. Total bilirubin 0.5 and the remainder of the liver function is normal. Total protein is 6.2 with an albumin fraction of 3.4 01/15/21 17:22 patient feels her pain is adequately controlled at this time. I am going to leave her on the Percocet as there are not any other good alter natives. I will place her on Zofran 4 mg sublingual to be taken half an hour before she takes a Percocet tablet. If she is not getting satisfactory pain relief an hour and a half after taking the Percocet she can take a second 1. Also going to suggest that she goes on MiraLAX powder 1 scoop or 17 g daily to prevent constipation while on pain medication. After third day postop hopefully she can switch to a combination of Tylenol and Motrin. Departure - Departure Time of Disposition: 17:23 Disposition: Home, Self-Care 01 Condition: Fair Clinical Impression: Postoperative abdominal pain Adverse effects of medication Qualifiers: Encounter type: initial encounter Qualified Code(s): T50.905A - Adverse effect of unspecified drugs, medicaments and biological substances, initial encounter Nausea and vomiting Qualifiers: Vomiting type: bilious vomiting Qualified Code(s): R11.14 - Bilious vomiting - Discharge Information *PRESCRIPTION DRUG MONITORING PROGRAM REVIEWED*: Not Applicable *COPY OF PRESCRIPTION DRUG MONITORING REPORT IN PATIENT ANAID: Not Applicable Prescriptions: polyethylene glycoL 3350 [MiraLAX] 17 gm PO DAILY #1 container Ondansetron [Zofran] 4 mg BUCCAL Q6H PRN #10 tab PRN Reason: nausea or vomiting Instructions: Abdominal Pain, Adult, [id number], Nausea, Adult, [id number] Referrals: PCP,None [Primary Care Provider] - Forms: ED Department Discharge Additional Instructions: Evaluation in the emergency room today in regards to postoperative abdominal pain with inability to control with oral medications due to adverse effects of medicine causing nausea and vomiting. You were treated with a liter of IV fluids to provide rehydration. Lab tests revealed the start of mild dehydration but nothing else sinister particularly hemoglobin is well maintained at 12.6 with normal being 14. X-ray of the abdomen was also within normal limits showing no free air or bowel obstruction or ileus pattern. You were treated with Dilaudid 1 mg and Reglan 7.5 mg for pain relief. Treatment at home is to be MiraLAX powder 17 g or 1 scoop daily while on the pain medicine to prevent constipation from occurring. Your x-ray did suggest that there is some mild constipation at this time. Use Zofran 4 mg under the tongue every 4-6 hours as necessary for relief of nausea or vomiting. Suggest taking it a good half hour before taking a Percocet tablet to relieve your pain. After 2 or 3 days you can start to use Motrin 600 mg every 6 hours alternating with Tylenol for pain relie f. Follow-up with Dr. Hinojosa or return to ED if any further problems occur. Sepsis Event Note (ED) - Evaluation Sepsis Screening Result: No Definite Risk - Focused Exam Vital Signs: Vital Signs Temp Pulse Resp BP Pulse Ox 01/15/21 14:27 36.9 C 66 16 130/97 H 100
--- NOTE | 2021-01-15 15:47 | CR ---
Abdomen: Supine view of the abdomen was obtained. Comparison: No prior abdominal imaging is available. Bowel gas pattern is normal. Calcifications are noted within the pelvis which are most likely due to phleboliths. No soft tissue abnormality is seen. Bony structures show nothing acute. Impression: 1. Nothing acute is seen on supine abdominal x-ray. Diagnostic code #1
== END 2021-01-15 17:38 | disposition home or self-care (01) ==
LOC: JD.ED 14:17
DX: G89.18 Other acute postprocedural pain (principal); R10.30 Lower abdominal pain, unspecified; R11.14 Bilious vomiting; T50.905A Adverse effect of unspecified drugs, medicaments and biological substances, initial encounter
CPT/HCPCS: 36415; 74018; 80053; 85025; 96374; 96375; 99284; J1170; J2765; J7121; 99283

== ENCOUNTER 2024-06-20 22:01 | Emergency (ER) | payer BC ==
[2024-06-20 22:16] VITALS: BP 135/98; PULSE 93
== END 2024-06-20 23:34 | disposition home or self-care (01) ==
LOC: JD.ED 22:01
DX: S99.912A Unspecified injury of left ankle, initial encounter (principal); Z90.710 Acquired absence of both cervix and uterus; X50.1XXA Overexertion from prolonged static or awkward postures, initial encounter
CPT/HCPCS: 73610-26-LT; 73610-LT; 99283

== ENCOUNTER 2024-09-18 11:34 | Emergency (ER) | payer BC ==
[2024-09-18 12:43] VITALS: PULSE 60
[2024-09-18 13:51] LABS: BASOPHILS PERCENT AUTO 0.6 % (0.0-1.0); EOSINOPHILS PERCENT AUTO 0.6 % (0.0-6.0); HEMATOCRIT 42.8 % (37.0-47.0); HEMOGLOBIN 14.6 gm/dl (12.0-16.0); IMMATURE GRAN ABSOLUTE AUTO 0.01 K/mm3 (0.00-0.05); IMMATURE GRAN PERCENT AUTO 0.2 % (0.0-0.4); LYMPHOCYTES ABSOLUTE AUTO 1.6 K/mm3 (1.0-4.8); LYMPHOCYTES PERCENT AUTO 29.7 % (24.0-44.0); MEAN CORPUSCULAR HGB CONC 34.1 g/dl (32.0-36.0); MEAN CORPUSCULAR VOLUME 96.6 fl (83.0-99.0); MEAN PLATELET VOLUME 9.4 fl (9.4-12.3); MONOCYTES ABSOLUTE AUTO 0.3 K/mm3 (0.0-0.8); MONOCYTES PERCENT AUTO 6.5 % (0.0-8.0); NEUTROPHILS ABSOLUTE AUTO 3.3 K/mm3 (1.8-7.7); NEUTROPHILS PERCENT AUTO 62.4 % (41.0-71.0); PLATELET COUNT,PLT 337 K/mm3 (150-400); RED BLOOD CELL COUNT 4.43 M/mm3 (4.10-5.30); WHITE BLOOD CELL COUNT,WBC 5.22 K/mm3 (3.9-11.3)
[2024-09-18 13:53] LABS: APPEARANCE,URINE CLEAR (Clear); BILIRUBIN,URINE NEGATIVE (Negative); COLOR,URINE LIGHT YELLOW (Yellow); GLUCOSE,URINE NEGATIVE (Negative); KETONES,URINE NEGATIVE (Negative); LEUKOCYTE ESTERASE,URINE TRACE (Negative); NITRITE,URINE NEGATIVE (Negative); OCCULT BLOOD,URINE NEGATIVE (Negative); PROTEIN,URINE NEGATIVE (Negative); UROBILINOGEN,URINE 0.2 (0.2-1.0)
[2024-09-18 14:01] LABS: BACTERIA,URINE MODERATE /hpf (FEW); MUCUS,URINE FEW /hpf (FEW); RBC,URINE 0-5 /hpf (0-5); SQUAMOUS EPITHELIAL CELLS,UR 0-5 /hpf (0-5)
[2024-09-18] MEDS: Ondansetron 4 MG/2 ML SDV IVPUSH ONE (14:02)
[2024-09-18] MEDS: Ketorolac 30 MG/ML SDV IVPUSH ONE (14:02)
[2024-09-18] MEDS: Lactated Ringers 1,000 ML IV ONE (14:03)
[2024-09-18 14:07] LABS: A/G RATIO 1.2 (1-2); ALBUMIN 4.2 g/dl (3.4-5.0); ANION GAP 11.6 (5-15); BILIRUBIN TOTAL 1.2 mg/dL (0.2-1.0); BUN/CREATININE RATIO 10.9 (14-18); CALCIUM 8.6 mg/dL (8.5-10.1); CREATININE 1.1 mg/dL (0.55-1.02); EST CRCL DRUG DOSING (CG) 59.34 mL/min; POTASSIUM,K 3.6 mEq/L (3.5-5.1); PROTEIN TOTAL,TP 7.7 g/dl (6.4-8.2)
[2024-09-18 20:10] VITALS: BP 123/83
== END 2024-09-18 15:30 | disposition home or self-care (01) ==
LOC: JD.ED 11:34
DX: R51.9 Headache, unspecified (principal); R42 Dizziness and giddiness; H53.9 Unspecified visual disturbance; Z90.710 Acquired absence of both cervix and uterus
CPT/HCPCS: 36415; 70450; 80053; 81001; 85025; 87086; 93005; 96361; 96374; 96375; 99284; J1885; J2405; J7120; 93010